=== PATIENT | female | born 1930 | race Caucasian/White ===

== ENCOUNTER 2017-05-18 16:22 | Emergency (ER) | payer OTHER ==
[2017-05-18] MEDS: KETOROLAC 30 MG INJ IM (17:56)
[2017-05-18] MEDS: ALPRAZOLAM 1 MG TAB PO (18:01)
== END 2017-05-18 18:14 | disposition home or self-care (01) ==
LOC: E/R 16:22
DX: M54.32 Sciatica, left side (principal); I10 Essential (primary) hypertension; E66.9 Obesity, unspecified
CPT/HCPCS: 96372; 99284-25

== ENCOUNTER 2018-05-07 14:33 | Emergency (ER) | payer OTHER ==
[2018-05-07 20:21] LABS: ADD MAN DIFF? NO
[2018-05-07 20:22] LABS: BASOPHILS % 0.4 % (0.0-2.0); EOSINOPHILS # 0.1 10^3/ul (0.0-0.5); EOSINOPHILS % 1.2 % (0.0-7.0); HEMATOCRIT 45.9 % (37.0-47.0); HEMOGLOBIN 14.1 g/dl (12.0-16.0); LYMPHOCYTES # 2.1 10^3/ul (0.8-2.9); LYMPHOCYTES % 43.1 % (15.0-51.0); MEAN CORPUSCULAR HEMOGLOBIN 26.4 pg (29.0-33.0); MEAN CORPUSCULAR HGB CONC 30.7 g/dl (32.0-37.0); MEAN PLATELET VOLUME 9.5 fl (7.4-10.4); MONOCYTE # 0.5 10^3/ul (0.3-0.9); MONOCYTES % 9.6 % (0.0-11.0); NEUTROPHIL # 2.2 10^3/ul (1.6-7.5); NEUTROPHILS % 45.5 % (39.0-77.0); PLATELET COUNT 227 10^3/UL (140-415); RED BLOOD COUNT 5.34 10^6/ul (4.20-5.40); RED CELL DISTRIBUTION WIDTH 13.9 % (11.5-14.5)
[2018-05-07 20:22] LABS: WHITE BLOOD COUNT 4.9 10^3/ul (4.8-10.8)
[2018-05-07] MEDS: KETOROLAC 30 MG INJ IV (20:22)
[2018-05-07 20:41] LABS: ANION GAP 10 (5-13); BLOOD UREA NITROGEN 15 mg/dl (7-20); CALCIUM 10.8 mg/dl (8.4-10.2); CARBON DIOXIDE 31 mmol/L (21-31); CHLORIDE 96 mmol/L (97-110); CREATININE 0.83 mg/dl (0.44-1.00); GLUCOSE 108 mg/dl (70-220); POTASSIUM 3.9 mmol/L (3.5-5.1); SODIUM 137 mmol/L (135-144)
[2018-05-07 20:53] LABS: TROPONIN-I < 0.012 ng/ml (0.000-0.120)
== END 2018-05-07 22:02 | disposition home or self-care (01) ==
LOC: E/R 14:33
DX: M54.2 Cervicalgia (principal); I10 Essential (primary) hypertension; R94.02 Abnormal brain scan
CPT/HCPCS: 36415; 70450; 80048; 84484; 85025; 93005; 93880; 96374; 99285-25